=== PATIENT | male | born 1950 | race Caucasian/White ===

== ENCOUNTER 2017-03-09 13:52 | Emergency (ER) | payer MEDICAID, OTHER ==
[2017-03-09 14:08] VITALS: RESP 16; TEMP 98.2; O2SAT 91
--- NOTE | 2017-03-09 14:41 | EDPHY ---
H & P Stated Complaint: seizure? Time Seen by Provider: 03/09/17 14:40 - Personal History Current Tetanus/Diphtheria Vaccine: Unsure Current Tetanus Diphtheria and Acellular Pertussis (TDAP): Unsure - Medical/Surgical History Hx Asthma: No Hx Chronic Respiratory Disease: No Hx Diabetes: No Hx Cardiac Disease: No Hx Renal Disease: No Hx Cirrhosis: No Hx Alcoholism: Yes Hx HIV/AIDS: No Hx Splenectomy or Spleen Trauma: No Other PMH: PMH: HTN, L EAR SKIN GRAFT AND SKIN CA REVISION, ETOH ABUSE, cebrebral hemmoRAGE, brain surgery11/08/15. PSH: brain surgery11/08/15 - Social History Smoking Status: Former smoker Constitutional: Initial Vital Signs Temperature (C) 36.8 C 03/09/17 13:52 Heart Rate 116 H 03/09/17 13:52 Respiratory Rate 16 03/09/17 13:52 Blood Pressure 141/93 H 03/09/17 13:52 O2 Sat (%) 91 L 03/09/17 13:52 O2 Delivery Mode Room Air Allergies/Adverse Reactions: No Known Allergies Allergy (Unverified 11/08/15 17:22) Home Medications: Medication Instructions Recorded Acyclovir [Zovirax 400 mg (*)] 800 mg PO BID #60 tab 12/10/15 Lisinopril 03/09/17 Medical Decision Making - Diagnostics Imaging Results: Imaging Impressions Head CT 03/09/17 14:53 Impression: 1. No acute intracranial findings. 2. Probable dural thickening versus less likely sequela of chronic subdural hematoma deep to the right craniotomy flap. Findings discussed with Porfirio Rm M.D., on March 09 2017 at 1531. ED Course/Re-evaluation: CHIEF COMPLAINT: HISTORY OF PRESENT ILLNESS: This patient is a 66 year old male arriving with his following a suspected seizure shortly prior to arrival. 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 He had extensive care for this including two brain surgeries. His reports he had a seizure while hospitalized. He stopped drinking for about four months, but is now drinking again. This morning, he and his were preparing for a camping trip, and his found him lying in his chair with blood coming from his mouth. The patient does not remember the incident. He is not currently taking any antiseizure medication. He did consume "a lot" of alcohol yesterday, and his states his usual amount is about 12 beers. No fever, chest pain, shortness of breath, vomiting, or other associated symptoms. REVIEW OF SYSTEMS: A 10 point review of systems was performed and is negative with the exception of the elements mentioned in the history of present illness. PHYSICAL EXAM: HR, BP, O2 Sat, RR. Temp noted General Appearance: Alert, well hydrated, appropriate, and non-toxic appearing. Head: Atraumatic without scalp tenderness or obvious injury Eyes: Pupils equal, round, reactive to light and accommodation, EOMI, no trauma , no injection. Ears: Clear bilaterally, no perforation, normal landmarks Nose: Atraumatic, no rhinorrhea, clear. Throat: Left lateral and small right lateral tongue bites. There is no erythema or exudates, mucus membranes moist. Neck: Supple, 2+ carotid upstroke, nontender, no lymphadenopathy. Respiratory: No retractions, no distress, no wheezes, and no accessory muscle use. Lungs are clear to auscultation bilaterally. Cardiovascular: Regular rate and rhythm, no murmurs, rubs, or gallops. Good capillary refill all extremities. Gastrointestinal: Abdomen is soft, nontender, non-distended. Musculoskeletal: Normal active ROM of all extremities, atraumatic. Neurological: Alert, appropriate, and interactive. The patient has normal DTRs and non-focal cranial nerves, motor, sensory, and cerebellar exam. Skin: No rashes, good turgor, no nodules on palpation. Past medical history: Hypertension, cerebral hemorrhage, alcohol abuse. Past surgical history: Brain surgery 11/08/15, L ear skin graft, skin CA revision Family history: Noncontributory Social history: Current alcohol abuse. , lives in [place]. at bedside. DIAGNOSTICS/PROCEDURES/CRITICAL CARE TIME: Study: CT of the brain without contrast Indication: seizure prior traumatic brain injury and chronic alcoholic Results: CT scan of the brain] was obtained. The results of the study are no acute process. The study was read by the radiologist, Dr. David Coleman. I viewed the images myself on the PACS system. DIFFERENTIAL DIAGNOSIS: The differential diagnosis for the patient's seizure included but was not limited to electrolyte abnormality, alcohol withdrawal, medication noncompliance , head injury, MEDIA CLERK structural abnormality, and break through seizure. MEDICAL DECISION MAKING: This patient is 66 year old male. Physical exam reveals left lateral and small right lateral tongue bites. High suspicion for seizure, due to alcohol withdrawal or to prior brain injury. Plan to order noncontrast head CT, labs including CBC, BMP. Plan to administer 1mg IV Ativan to prevent recurrent seizure. 15:[address] Coleman, radiologist. Head CT negative for acute processes. 4:00 p.m.: This patient is feeling normal. His is willing to take him back home. His head CT is unremarkable. Laboratory studies are unremarkable. He most likely had an alcohol withdrawal seizure as he is a significant and chronic alcoholic. I have offered him rehab and he is not interested. - Data Points Laboratory Results: Laboratory Results 03/09/17 15:00 03/09/17 03/09/17 03/09/17 15:41 15:38 15:00 WBC RBC Hgb POC Hgb 16.7 gm/dL gm/dL (13.7-17.5) Hct POC Hct 49 % % (40-51) MCV MCH MCHC RDW Plt Count MPV Neut % (Auto) Lymph % (Auto) [place] % (Auto) Eos % (Auto) Baso % (Auto) Nucleat RBC Rel Count Absolute Neuts (auto) Absolute Lymphs (auto) Absolute Monos (auto) Absolute Eos (auto) Absolute Basos (auto) Absolute Nucleated RBC Immature Gran % Immature Gran # POC Sodium 143 mEq/L mEq/L (134-144) Sodium Pending REJ POC Potassium 4.2 mEq/L mEq/L (3.3-5.0) Potassium Pending Not Reported POC Chloride 107 mEq/L mEq/L (97-110) Chloride Pending Not Reported Carbon Dioxide Pending Not Reported Anion Gap Pending Not Reported POC BUN 11 mg/dL mg/dL (7-23) BUN Pending Not Reported Creatinine Pending Not Reported POC Creatinine 0.9 mg/dL mg/dL (0.7-1.3) Estimated GFR Pending Not Reported Glucose Pending Not Reported POC Glucose 143 mg/dL H mg/dL (70-100) Calcium Pending Not Reported 03/09/17 15:00 WBC 6.17 10^3/uL 10^3/uL (3.80-9.50) RBC 4.78 10^6/uL 10^6/uL (4.40-6.38) Hgb 16.1 g/dL g/dL (13.7-17.5) POC Hgb Hct 47.0 % % (40.0-51.0) POC Hct MCV 98.3 fL fL (81.5-99.8) MCH 33.7 pg pg (27.9-34.1) MCHC 34.3 g/dL g/dL (32.4-36.7) RDW 14.7 % % (11.5-15.2) Plt Count 202 10^3/uL 10^3/uL (150-400) MPV 10.3 fL fL (8.7-11.7) Neut % (Auto) 84.6 % H % (39.3-74.2) Lymph % (Auto) 8.8 % L % (15.0-45.0) [place] % (Auto) 5.5 % % (4.5-13.0) Eos % (Auto) 0.0 % L % (0.6-7.6) Baso % (Auto) 0.8 % % (0.3-1.7) Nucleat RBC Rel Count 0.0 % % (0.0-0.2) Absolute Neuts (auto) 5.22 10^3/uL 10^3/uL (1.70-6.50) Absolute Lymphs (auto) 0.54 10^3/uL L 10^3/uL (1.00-3.00) Absolute Monos (auto) 0.34 10^3/uL 10^3/uL (0.30-0.80) Absolute Eos (auto) 0.00 10^3/uL L 10^3/uL (0.03-0.40) Absolute Basos (auto) 0.05 10^3/uL 10^3/uL (0.02-0.10) Absolute Nucleated RBC 0.00 10^3/uL 10^3/uL (0-0.01) Immature Gran % 0.3 % % (0.0-1.1) Immature Gran # 0.02 10^3/uL 10^3/uL (0.00-0.10) POC Sodium Sodium POC Potassium Potassium POC Chloride Chloride Carbon Dioxide Anion Gap POC BUN BUN Creatinine POC Creatinine Estimated GFR Glucose POC Glucose Calcium Medications Given: Discontinued Medications Lorazepam (Ativan Injection) 1 mg IVP EDNOW ONE Stop: 03/09/17 14:54 Last Admin: 03/09/17 15:04 Dose: 1 mg Point of Care Test Results: 03/09/17 15:38 POC Sodium 143 POC Potassium 4.2 POC Chloride 107 POC BUN 11 POC Creatinine 0.9 POC Glucose 143 H Departure - Departure Disposition: Home, Routine, Self-Care Clinical Impression: Seizure disorder Condition: Good Instructions: Alcohol Withdrawal (ED), Recurrent Seizures in Adults (ED) Additional Instructions: No driving, operating equipment, climbing on ladders, or doing anything dangerous for the next 3 months or until your cleared by your primary doctor or neurologist. Referrals: Alfredito Duff MD [Medical Doctor] - As per Instructions Report Scribed for: Porfirio Rm Report Scribed by: Abbey Silver Date of Report: 03/09/17 Time of Report: 14:42
[2017-03-09] MEDS ORDERED: LORazepam 2 MG/ML INJ ONE (14:53)
[2017-03-09] MEDS ORDERED: LORazepam 2 MG/ML INJ IVP ONE (14:53)
[2017-03-09 15:07] LABS: % IMMATURE GRANULYOCYTES 0.3 % (0.0-1.1); ABSOLUTE IMMATURE GRANULOCYTES 0.02 10^3/uL (0.00-0.10); ADD DIFF? NO; ADD MORPH? NO; ADD SCAN? NO; ATYPICAL LYMPHOCYTE FLAG 0 (0-99); FRAGMENT RBC FLAG 0 (0-99); HEMOGLOBIN 16.1 g/dL (13.7-17.5); LEFT SHIFT FLG 0 (0-99); LIPEMIA HEMOLYSIS FLAG 90 (0-99); MEAN CELL HEMOGLOBIN 33.7 pg (27.9-34.1); MEAN CELL HEMOGLOBIN CONCENTR. 34.3 g/dL (32.4-36.7); MEAN CELL VOLUME 98.3 fL (81.5-99.8); MEAN PLATELET VOLUME 10.3 fL (8.7-11.7); PLATELET CLUMPS FLAG 10 (0-99); PLATELET COUNT 202 10^3/uL (150-400); RED BLOOD CELL COUNT 4.78 10^6/uL (4.40-6.38); RED CELL DISTRIBUTION WIDTH 14.7 % (11.5-15.2)
[2017-03-09 16:19] LABS: ANION GAP 11 mEq/L (8-16); CALCIUM 9.4 mg/dL (8.5-10.4); CARBON DIOXIDE 22 mEq/l (22-31); CHLORIDE 110 mEq/L (97-110); CREATININE 0.9 mg/dL (0.7-1.3); GLOMERULAR FILTRATION RATE > 60; GLUCOSE 139 mg/dL (70-100); SODIUM 143 mEq/L (134-144)
[2017-03-09 16:20] LABS: POTASSIUM 4.3 mEq/L (3.3-5.0)
[2017-03-09 16:22] VITALS: BP 146/101; PULSE 100
== END 2017-03-09 16:21 | disposition home or self-care (01) ==
LOC: EDUNIT#
DX: G40.909 Epilepsy, unspecified, not intractable, without status epilepticus (principal); I10 Essential (primary) hypertension; Z85.828 Personal history of other malignant neoplasm of skin; Z87.891 Personal history of nicotine dependence
CPT/HCPCS: 70450; 96374; 99285; J2060; 82947-QW

== ENCOUNTER 2017-10-23 21:24 | Inpatient (IN) | payer OTHER ==
--- NOTE | 2017-10-23 21:38 | EDPHY ---
H & P Stated Complaint: fall Time Seen by Provider: 10/23/17 21:35 HPI/ROS: HPI The patient presents with a fall which occurred prior to arrival. He lives at home with his . His had traveled out of town. She spoke with him at about 5:00 p.m. And he was slurring his words. She was worried that he was intoxicated. She got home at about 8:45 p.m. And found him at the base of a full flight of stairs somewhat unconscious. He had a hematoma which was bleeding on his head. He had urinated on himself. She was able to arouse him, however he seemed drunk to her. She called 911.. REVIEW OF SYSTEMS Constitutional: No fever, no chills. Eyes: No discharge. ENT: No sore throat. Cardiovascular: No chest pain, no palpitations. Respiratory: No cough, no shortness of breath. Gastrointestinal: No abdominal pain, no vomiting. Genitourinary: No hematuria. Musculoskeletal: No back pain. Skin: No rashes. Neurological: No headache. PMHx: Subdural hematoma, history of traumatic brain injury 2 years ago, does have resultant seizures. Soc Hx: Lives at home, drinks alcohol when he can get his hands on it PHYSICAL General Appearance: Alert, seeming intoxicated. Head: There is a 3 cm hematoma to his posterior occiput which is actively bleeding Eyes: Pupils equal and round no pallor or injection, right-sided periorbital ecchymoses ENT, Mouth: Mucous membranes moist Respiratory: There are no retractions, lungs are clear to auscultation Cardiovascular: Regular rate and rhythm Gastrointestinal: Abdomen is soft and non-tender, no masses, bowel sounds normal Neurological: A&O x3, moves all extremities Skin: Warm and dry, no rashes Musculoskeletal: C-collar is in place Extremities: symmetrical, full range of motion Psychiatric: Patient is oriented X 3, there is no agitation Source: Patient, Family, EMS Exam Limitations: Intoxication - Medical/Surgical History Hx Asthma: No Hx Chronic Respiratory Disease: No Hx Diabetes: No Hx Cardiac Disease: No Hx Renal Disease: No Hx Cirrhosis: No Hx Alcoholism: Yes Hx HIV/AIDS: No Hx Splenectomy or Spleen Trauma: No Other PMH: PMH: HTN, L EAR SKIN GRAFT AND SKIN CA REVISION, ETOH ABUSE, cebrebral hemmoRAGE, brain surgery11/08/15. PSH: brain surgery11/08/15 - Social History Smoking Status: Former smoker Constitutional: Initial Vital Signs Temperature (C) 36.9 C 10/23/17 21:33 Heart Rate 95 10/23/17 21:33 Respiratory Rate 18 10/23/17 21:33 Blood Pressure 132/90 H 10/23/17 21:33 O2 Sat (%) 94 10/23/17 21:33 O2 Delivery Mode Room Air Allergies/Adverse Reactions: No Known Allergies Allergy (Unverified 11/08/15 17:22) Home Medications: Medication Instructions Recorded Acyclovir [Zovirax 400 mg (*)] 800 mg PO BID #60 tab 12/10/15 Lisinopril 03/09/17 Medical Decision Making - Diagnostics Imaging Results: Imaging Impressions Head CT 10/23/17 21:33 Impression: 1. Cervical spine negative for fracture. 2. Multilevel spondylosis is noted. Results called and discussed with Silvina Bo MD on 10/23/2017 at 22:[address] 10/23/17 21:34 Impression: 1. Cervical spine negative for fracture. 2. Multilevel spondylosis is noted. Results called and discussed with Silvina Bo MD on 10/23/2017 at 22:[address] 10/23/17 21:34 Impression: 1. Facial bones are negative for fracture. 2. See above report for additional findings. Results called and discussed with Silvina Bo MD on 10/23/2017 at 22:33 CT brain demonstrates right-sided subdural and subarachnoid blood, discussed with radiologist. Imaging: Discussed imaging studies w/ sales process manager Radiologist Procedures: LACERATION REPAIR Procedure: Laceration repair. Verbal consent was obtained from the patient. The linear 1 cm and 1 cm laceration on the scalp:. The wound was scrubbed, draped and explored to its base with a gloved finger. There were no deep structures involved. . The wound was repaired with 2 christofer and 1 staple. The wound repair was simple. The procedure was performed by myself. Differential Diagnosis: 67-year-old man with history of alcohol abuse, subdural hemorrhage, traumatic brain injury with seizures presents after fall down 1 flight of stairs. It is unclear how he fell or he has suffered from a seizure. He does seem quite intoxicated now without any focal neurologic deficit. He does have a hematoma of his scalp. Differential diagnosis includes intracranial hemorrhage, subdural hemorrhage, seizure, alcohol intoxication, electrolyte disturbance. 9:35 p.m.- Initial patient encounter. I met the paramedics at the bedside to obtain their report. I spoke with the patient's at the bedside. 10:30 p.m.- I spoke with Dr. Anderson. Patient's CT scan shows subdural hemorrhage of the right frontal region as well as subarachnoid blood. 10:50 p.m.- I spoke with Dr. Marshall of Neurosurgery who recommends admission to Step-Down Unit with trauma team admitting and they will consult in the morning. 11:00 p.m.- I have ordered Keppra for the patient. I have discussed the case with Dr. Nolasco on-call for trauma surgery. He will come to see the patient to admit him to the Step-Down Unit. I have discussed the result with the patient and his at the bedside. Critical Care Time: CRITICAL CARE Critical care time spent by me, Dr. Bo, exclusively with this patient was 30 minutes, exclusive of PA time and exclusive of procedures. The organ system at risk was neuro and I gave antiepileptics, consulted with the trauma surgeon in the neurosurgeon and admitted the patient to the hospital to prevent worsening of the patients condition. - Data Points Laboratory Results: Laboratory Results 10/23/17 21:50 10/23/17 21:50 10/23/17 10/23/17 21:50 21:50 WBC 6.67 10^3/uL 10^3/uL (3.80-9.50) RBC 5.00 10^6/uL 10^6/uL (4.40-6.38) Hgb 15.8 g/dL g/dL (13.7-17.5) Hct 47.1 % % (40.0-51.0) MCV 94.2 fL fL (81.5-99.8) MCH 31.6 pg pg (27.9-34.1) MCHC 33.5 g/dL g/dL (32.4-36.7) RDW 14.4 % % (11.5-15.2) Plt Count 237 10^3/uL 10^3/uL (150-400) MPV 10.1 fL fL (8.7-11.7) Neut % (Auto) 55.6 % % (39.3-74.2) Lymph % (Auto) 35.5 % % (15.0-45.0) [place] % (Auto) 7.9 % % (4.5-13.0) Eos % (Auto) 0.6 % % (0.6-7.6) Baso % (Auto) 0.3 % % (0.3-1.7) Nucleat RBC Rel Count 0.0 % % (0.0-0.2) Absolute Neuts (auto) 3.70 10^3/uL 10^3/uL (1.70-6.50) Absolute Lymphs (auto) 2.37 10^3/uL 10^3/uL (1.00-3.00) Absolute Monos (auto) 0.53 10^3/uL 10^3/uL (0.30-0.80) Absolute Eos (auto) 0.04 10^3/uL 10^3/uL (0.03-0.40) Absolute Basos (auto) 0.02 10^3/uL 10^3/uL (0.02-0.10) Absolute Nucleated RBC 0.00 10^3/uL 10^3/uL (0-0.01) Immature Gran % 0.1 % % (0.0-1.1) Immature Gran # 0.01 10^3/uL 10^3/uL (0.00-0.10) Sodium 145 mEq/L mEq/L (135-145) Potassium 4.5 mEq/L mEq/L (3.5-5.2) Chloride 105 mEq/L mEq/L (97-110) Carbon Dioxide 25 mEq/l mEq/l (22-31) Anion Gap 15 mEq/L mEq/L (8-16) BUN 6 mg/dL L mg/dL (7-23) Creatinine 0.8 mg/dL mg/dL (0.7-1.3) Estimated GFR > 60 Glucose 90 mg/dL mg/dL (70-100) Calcium 8.7 mg/dL mg/dL (8.5-10.4) Total Bilirubin 0.2 mg/dL mg/dL (0.1-1.4) AST 21 IU/L IU/L (17-59) ALT 32 IU/L IU/L (21-72) Alkaline Phosphatase 57 IU/L IU/L (38-126) Total Protein 7.1 g/dL g/dL (6.3-8.2) Albumin 4.1 g/dL g/dL (3.5-5.0) Ethyl Alcohol 365 mg/dL H mg/dL (0-10) Medications Given: Famotidine/Sodium Chloride (Pepcid 20 Mg (Premix)) 50 mls @ 200 mls/hr IV DAILY HERI Stop: 04/21/18 23:29 Last Admin: 10/24/17 00:00 Dose: 50 mls Discontinued Medications Levetiracetam (Keppra (Premix)) 100 mls @ 400 mls/hr IV EDNOW ONE Stop: 10/23/17 23:12 Last Admin: 10/23/17 23:31 Dose: 100 mls Midazolam HCl (Versed) 1 mg IVP EDNOW ONE Stop: 10/23/17 23:07 Last Admin: 10/23/17 23:32 Dose: 1 mg Departure - Departure Disposition: [facility] Inpatient Acute Clinical Impression: Subdural hematoma, acute, Fall at home, Subarachnoid bleed, Alcohol intoxication Condition: Fair
[2017-10-23 22:01] LABS: PLATELET COUNT 237 10^3/uL (150-400)
[2017-10-23] MEDS ORDERED: levETIRAcetam 1000MG/NACL 100 ML IV ONE (22:58)
[2017-10-23] MEDS ORDERED: MIDAZOLAM 2 MG/2 ML VIAL IVP ONE (23:06)
[2017-10-23] MEDS ORDERED: ONDANSETRON DISINTEGRATING 4 MG TAB PO PRN (23:24)
[2017-10-23] MEDS ORDERED: ONDANSETRON 4 MG/2 ML VIAL IVP PRN (23:24)
[2017-10-23] MEDS ORDERED: DIAZEPAM 5 MG TAB PO PRN (23:24)
--- NOTE | 2017-10-23 23:24 | PDGENHP ---
History and Physical - Chief Complaint head injury - History of Present Illness 67 y/o male brought in to the ED by EMS after his came home and found him at the bottom of the stairs unconscious. He arrived by ambulance as a non- trauma activation. He was assessed by Dr. Bo and CTof the head and cervical spine were performed. He was found to have a right frontal SDH with associated SAH. Neurosurgery was consulted and Dr. Alamo reviewed the patient' s images. Trauma Service consultation was requested. At the time of my interview the patient was somewhat agitated, inebriated and beligerant. History Information - Allergies/Home Medication List Allergies/Adverse Reactions: No Known Allergies Allergy (Unverified 11/08/15 17:22) Home Medications: Lisinopril 03/09/17 [Last Taken Unknown] I have personally reviewed and updated: family history, medical history, social history, surgical history - Past Medical History seizures - Surgical History Additional surgical history: right parietal craniotomy 11/08/15 Dr. 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 Review of Systems Review of Systems: Constitutional: Reports: recent injury EENMT: Reports: no symptoms Cardiac: Reports: no symptoms Respiratory: Reports: no symptoms Gastrointestinal: Reports: no symptoms Genitourinary: Reports: no symptoms Muscolosketal: Reports: no symptoms Neurological: Reports: other (history of prior seizures/multiple head injuries) Hematologic/Lymphatic: Reports: no symptoms Physical Exam Physical Exam: Temp Pulse Resp BP Pulse Ox 36.6 C 100 16 103/68 97 10/23/17 22:00 10/23/17 22:00 10/23/17 22:00 10/23/17 22:00 10/23/17 22:00 Constitutional: not in pain Eyes: PERRL (2mm pupils), anicteric sclera, EOMI, other (right periorbital ecchymosis) Ears, Nose, Mouth, Throat: moist mucous membranes, hearing normal, other (large scalp hematoma with 1 cm lac parietal, minimal bleeding/neck non-tender) Cardiovascular: regular rate and rhythym, tachycardia Peripheral Pulses: 4+: carotid (R), carotid (L), dorsalis-pedis (R), dorsalis- pedis (L) Respiratory: no respiratory distress, clear to auscultation Gastrointestinal: normoactive bowel sounds, soft, non-tender abdomen, no palpable masses, tenderness Genitourinary: no bladder tenderness Skin: warm, normal color Musculoskeletal: full muscle strength Neurologic: other (GCS 15 oriented to person, place, time (dates off by 2 weeks ) Reports CERTIFIED LOW VISION THERAPIST to be [facility]) Lab Data & Imaging Review 10/23/17 21:50 10/23/17 21:50 WBC 6.67 10^3/uL (3.80-9.50) 10/23/17 21:50 RBC 5.00 10^6/uL (4.40-6.38) 10/23/17 21:50 Hgb 15.8 g/dL (13.7-17.5) 10/23/17 21:50 Hct 47.1 % (40.0-51.0) 10/23/17 21:50 MCV 94.2 fL (81.5-99.8) 10/23/17 21:50 MCH 31.6 pg (27.9-34.1) 10/23/17 21:50 MCHC 33.5 g/dL (32.4-36.7) 10/23/17 21:50 RDW 14.4 % (11.5-15.2) 10/23/17 21:50 Plt Count 237 10^3/uL (150-400) 10/23/17 21:50 MPV 10.1 fL (8.7-11.7) 10/23/17 21:50 Neut % (Auto) 55.6 % (39.3-74.2) 10/23/17 21:50 Lymph % (Auto) 35.5 % (15.0-45.0) 10/23/17 21:50 [place] % (Auto) 7.9 % (4.5-13.0) 10/23/17 21:50 Eos % (Auto) 0.6 % (0.6-7.6) 10/23/17 21:50 Baso % (Auto) 0.3 % (0.3-1.7) 10/23/17 21:50 Nucleat RBC Rel Count 0.0 % (0.0-0.2) 10/23/17 21:50 Absolute Neuts (auto) 3.70 10^3/uL (1.70-6.50) 10/23/17 21:50 Absolute Lymphs (auto) 2.37 10^3/uL (1.00-3.00) 10/23/17 21:50 Absolute Monos (auto) 0.53 10^3/uL (0.30-0.80) 10/23/17 21:50 Absolute Eos (auto) 0.04 10^3/uL (0.03-0.40) 10/23/17 21:50 Absolute Basos (auto) 0.02 10^3/uL (0.02-0.10) 10/23/17 21:50 Absolute Nucleated RBC 0.00 10^3/uL (0-0.01) 10/23/17 21:50 Immature Gran % 0.1 % (0.0-1.1) 10/23/17 21:50 Immature Gran # 0.01 10^3/uL (0.00-0.10) 10/23/17 21:50 Sodium 145 mEq/L (135-145) 10/23/17 21:50 Potassium 4.5 mEq/L (3.5-5.2) 10/23/17 21:50 Chloride 105 mEq/L (97-110) 10/23/17 21:50 Carbon Dioxide 25 mEq/l (22-31) 10/23/17 21:50 Anion Gap 15 mEq/L (8-16) 10/23/17 21:50 BUN 6 mg/dL (7-23) L 10/23/17 21:50 Creatinine 0.8 mg/dL (0.7-1.3) 10/23/17 21:50 Estimated GFR > 60 10/23/17 21:50 Glucose 90 mg/dL (70-100) 10/23/17 21:50 Calcium 8.7 mg/dL (8.5-10.4) 10/23/17 21:50 Total Bilirubin 0.2 mg/dL (0.1-1.4) 10/23/17 21:50 AST 21 IU/L (17-59) 10/23/17 21:50 ALT 32 IU/L (21-72) 10/23/17 21:50 Alkaline Phosphatase 57 IU/L (38-126) 10/23/17 21:50 Total Protein 7.1 g/dL (6.3-8.2) 10/23/17 21:50 Albumin 4.1 g/dL (3.5-5.0) 10/23/17 21:50 Ethyl Alcohol 365 mg/dL (0-10) H 10/23/17 21:50 Interpretation: right frontal SDH/SAH, prior right parietal craniotomy. no shift or effacement. encephalomalacia present. cervical spine without fractures Assessment & Plan Assessment: s/p unwitnessed fall with LOC right frontal subdural hematoma/subarachnoid hemorrhage EtOH intoxication (365) s/p right parietal craniotomy for SDH 2016 hx seizures Plan: Admit to SDU for neuro-observation/repeat CT as indicated clinically Tertiary survey in AM CXR JEROME
[2017-10-23] MEDS ORDERED: NS 500 ML IV PRN (23:30)
[2017-10-24 04:12] LABS: PLATELET COUNT 249 10^3/uL (150-400)
[2017-10-24 08:37] LABS: PLATELET COUNT 224 10^3/uL (150-400)
[2017-10-24] MEDS ORDERED: THIAMINE HCL 500 MG in NS 500 ML IV SCH (09:00)
[2017-10-24] MEDS ORDERED: levETIRAcetam 500MG/NACL 100 ML IV SCH (09:00)
--- NOTE | 2017-10-24 09:16 | GCON ---
[f rep st] CONSULTATION HPI: Patient is a 67-year-old male who was brought to the ED last night by EMS after his found him unconscious at the bottom of the stairs. Patient does not remember the incident. CT of the head was performed that showed a scalp hematoma, right frontoparietal acute subdural hematoma with mild effacement of adjacent sulci, as well as small amount of frontoparietal subarachnoid and minimal petechial hemorrhage in the same area. There was no mass effect or midline shift. The patient does not remember the incident and was GCS 15. He was placed in ICU for observation overnight. Upon seeing him this morning, he does not remember the incident and does not remember falling down the stairs. States he does wear socks sometimes in the house, has carpeted stairs and has fallen down them before. He denies any headaches, any nausea, vomiting, any left-side weakness, nor difficulties with balance. His alcohol was 365 at admission and patient states he is a daily drinker of 3-4 beers a day. PAST MEDICAL HISTORY: Includes depression, hypertension. Has a documented history of seizures. SURGICAL HISTORY: Includes a right parietal craniotomy on 11/08/2015, by Dr. Agudelo, as well as recent Mohs procedure. SOCIAL HISTORY: Patient states he drinks 3-4 beers a day. He does not use any illicit drugs. He no longer uses tobacco. 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 He lives at home alone with his . ALLERGIES: He has no known drug allergies. REVIEW OF SYSTEMS: Negative for respiratory symptoms, chest pain. He has had a recent cold. No GI symptoms. Negative for weakness, negative for gait disturbance. Negative for headaches, nausea, vomiting, PHYSICAL EXAM: Patient is alert and oriented to person, place, and relative time. His speech is clear and fluent. He is hard of hearing. He is in no apparent distress. His extraocular movements are intact. He does have an occipitoparietal left-sided scalp laceration, as well as a large hematoma across his right eye. His extraocular movements are intact. His pupils are equal and reactive to light. His cranial nerves 2-12 are grossly intact. Tongue protrusion is midline. Facial movements are symmetric. Palate rise is symmetric. There is no facial droop. He moves all extremities x4. He has no pronator drift. He does have a mild resting tremor. He has full strength in his bilateral upper and lower extremities. His sensation is intact to light touch. Patient has a nonfocal neurological exam. ASSESSMENT AND PLAN: This is a 67-year-old gentleman with an intoxicated fall down the stairs with positive loss of consciousness, resulting in a right frontoparietal subdural hematoma and very small frontoparietal subarachnoid hemorrhage that did not cause any mass effect or midline shift. Patient has been GCS 15 since admission and has no deficits on neurological exam. Neurosurgery recommends to continue to watch the patient today, and if he remains stable he may be discharged from our standpoint, with followup outpatient as needed. Plan has been discussed with Dr. Robertson. He will see the patient later this morning before he discharges. Thank you for this consultation. Please contact us with any additional questions. /[id number]/MODL MTDD
--- NOTE | 2017-10-24 09:20 | ASMTCMCOM ---
CM Note CM Note Notes: 67 yr old male admitted after a ETOH/fall down the stairs and SDH, SAH. He has a hx of R parietal crani in '16 and SZ. Patient is . Therapies to eval for discharge needs. CM to follow. Date Signed: 10/24/2017 09:20 AM Electronically Signed By:Sisi Corrales LCSW
[2017-10-24] MEDS: chlordiazePOXIDE 25 MG CAP PO SCH ×2 (09:54→10:06)
[2017-10-24] MEDS: MULTIVITAMINS 1 EACH TAB PO SCH (09:54)
[2017-10-24] MEDS: FOLIC ACID 1 MG TAB PO SCH (09:54)
[2017-10-24] MEDS: FAMOTIDINE 20 MG/NACL 50 ML IV SCH ×2 (09:56)
[2017-10-24] MEDS ORDERED: LISINOPRIL/HCTZ 20/12.5MG 1 EA TAB PO PRN ×2 (10:46→10:49)
[2017-10-24] MEDS ORDERED: buPROPion SR 150 MG TAB PO PRN (10:46)
[2017-10-24] MEDS ORDERED: chlordiazePOXIDE 25 MG CAP PO PRN (10:47)
--- NOTE | 2017-10-24 11:28 | TRAUMAPN ---
Assessment/Plan: 67 yo with history of traumatic brain injury, alcohol abuse and fall now with Frontal SDH - repeat scan in 3-4 weeks Eye Ecchymosis - no vision issues Acute alcohol intoxication GINGER 365 - CIWA History of hypertension, seizures, - home medications. Has previously refused Since over age of 66 and co-morbidities, will consult hospitalist S: Feeling well. Left buttock is sore O: Tertiary survey performed Objective: Vital Signs Temp Pulse Resp BP Pulse Ox 36.8 C 100 21 H 121/83 H 90 L 10/24/17 08:00 10/24/17 08:00 10/24/17 08:00 10/24/17 08:00 10/24/17 08:00 Laboratory Results 10/24/17 08:30 10/24/17 04:00 10/23/17 10/24/17 10/25/17 05:59 05:59 05:59 Intake Total 110 Output Total 250 Balance -140 Physical Exam - Physical Exam General Appearance: WD/WN, alert, no apparent distress, other (Kayla on scalp. Incision without evidence of infection) EENT: other (R eye ecchymosis) Neck: non-tender, full range of motion, supple Respiratory: chest non-tender, lungs clear, normal breath sounds Cardiac/Chest: regular rate, rhythm, No edema Abdomen: normal bowel sounds, non-tender, soft Back: Normal inspection Skin: normal color, warm/dry, other (small hematoma L buttock and small abrasion R buttock) Extremities: normal range of motion, non-tender Neuro/Psych: no motor/sensory deficits, alert, abnormal director of employee development II-XII, other ( oriented to person place but not date. Poor insight)
[2017-10-24] MEDS: ACETAMINOPHEN 325 MG TAB PO PRN ×2 (13:47→20:12)
--- NOTE | 2017-10-24 15:23 | GCON ---
[f rep st] CONSULTATION DATE OF CONSULTATION: 10/24/2017 REASON FOR CONSULTATION: I was asked by Dr. Patricia to see the patient in regard to his medical proble ms, including hypertension. HISTORY OF PRESENT ILLNESS: This is a 67-year-old man who was admitted after a fall down his stairs at home while intoxicated, having been found to have a right frontal subdural hematoma, as well as elizabeth barachnoid hemorrhage. He does not really remember the incident himself. He was found to be intoxic ated on arrival to the Emergency Department with an alcohol level of 365. His history is difficult. He is quite tangential. However, he initially told me that he may drink up to 10 beers a day, and pako schuster later corrected that and said that he has not drink very much since his subdural hematoma evacuat ion in October of 2015. Regardless, he has been placed appropriately on CIWA and has been receiving Li brium. He additionally has hypertension. He tells me that this is well controlled on lisinopril. PAST MEDICAL HISTORY: 1. Hypertension. 2. Squamous cell carcinoma of the skin. 3. Subdural hematoma, status post evacuation with residual brain injury in October of 2015. 4. Alcohol use. 5. Hernia repair. 6. Questionable seizure disorder: He had been on Keppra after his previous hemorrhage. However, he was not continued on this. 7. History of gout. MEDICATIONS: Please see medication reconciliation. ALLERGIES: No known drug allergies. SOCIAL HISTORY: He is originally from the [place] area. He worked at [employer]. He has 2 da ughters. He is also . He drinks as above. FAMILY HISTORY: Reviewed and noncontributory. REVIEW OF SYSTEMS: A 10-point review of systems is conducted and is negative except per HPI. PHYSICAL EXAM: VITAL SIGNS: Blood pressure is 136/82, heart rate 105 respiration rate 19, saturatin g 95% on room air, temperature is 37. GENERAL: The patient is a pleasant man who is resting comfort ably, in no acute distress. HEENT: Shows him to have a right-sided scleral hemorrhage. CARDIOVASCU LAR: Shows him to be borderline tachycardic. There are no murmurs, rubs, or gallops. PULMONARY: S hows him to be in no respiratory distress. He is breathing comfortably. His lungs are clear to ausc ultation bilaterally. ABDOMEN: Soft, nontender, nondistended. SKIN: Shows no rash. : Shows no Murillo catheter in place. NEUROLOGIC: Shows him to be alert and oriented x3. He is quite tangentia l in his speech. LABORATORY DATA: 1. CBC is unremarkable. Bicarb is 21. Alcohol level is 365. 2. I reviewed his chart. 3. I reviewed his imaging including chest x-ray, which shows clear lung anderson bilaterally. I perso divine viewed and interpreted this. 4. Face CT shows no facial bone fractures. 5. Cervical spine CT shows no fractures with multilevel spondylosis. 6. Head CT shows right frontal parietal small subdural hematoma. IMPRESSION AND PLAN: 1. Subdural hematoma: Nonoperative per Neurosurgery. Would like to observe [address] scan in 3-4 weeks. 2. Alcohol abuse: He is mildly tachycardic, which may indicate some withdrawal, however is not paula rly tremulous. I think scheduled p.r.n. p.o. Librium for now is appropriate. He does not appear to have received any given low CIWA. He is currently on thiamine. Certainly, he has a potential for se tanya withdrawal. 3. Encephalopathy: Somewhat chronic per discussion with RN. He has gotten a cog evaluation. This is pending at this time. 4. Hypertension: Currently not an issue. He is on hydrochlorothiazide and lisinopril. 5. Depression: He is on Wellbutrin. 6. Disposition: Appreciate case management assistance in finding a safe disposition for him. Thank you for involving Hospital Medicine in the care of this patient. We will continue to follow [facility]. /[id number]/MODL
[2017-10-24] MEDS: buPROPion SR 150 MG TAB PO SCH (20:12)
[2017-10-24] MEDS ORDERED: MELATONIN 3 MG TAB PO SCH (21:00)
[2017-10-25] MEDS: ACETAMINOPHEN 325 MG TAB PO PRN ×2 (03:07→08:28)
[2017-10-25 07:54] VITALS: PULSE 86; RESP 14; TEMP 97.9; O2SAT 95
[2017-10-25 08:29] VITALS: BP 120/78
[2017-10-25] MEDS: FOLIC ACID 1 MG TAB PO SCH (08:29)
[2017-10-25] MEDS: MULTIVITAMINS 1 EACH TAB PO SCH (08:29)
[2017-10-25] MEDS: buPROPion SR 150 MG TAB PO SCH (08:29)
--- NOTE | 2017-10-25 08:48 | SOAPPROG ---
SOAP Progress Note Assessment/Plan: Assessment: 67-YEAR-OLD MALE WHO FELL DOWN THE STAIRS SUSTAINING A VERY SMALL SUBDURAL HEMATOMA/NEUROSURGERY HAS SIGNED OFF HIS CARE ALERT, COOPERATIVE, COMFORTABLE WITH NO HEADACHE OR BLURRY VISION OR NEUROLOGIC DEFICIT HEENT PERRLA, SUPPLE, OCCLUSION NORMAL CHEST CLEAR AND SYMMETRIC COR REGULAR RHYTHM ABDOMEN SOFT NONTENDER EXTREMITIES FULL RANGE OF MOTION FULL PULSES NEUROLOGIC IS PHYSIOLOGIC AND SYMMETRIC EXAM Plan: HOME TODAY 10/25/17 08:46 Objective: Vital Signs Temp Pulse Resp BP Pulse Ox 36.6 C 86 14 120/78 95 10/25/17 07:52 10/25/17 07:52 10/25/17 07:52 10/25/17 08:29 10/25/17 07:52 10/24/17 10/25/17 10/26/17 05:59 05:59 05:59 Intake Total 2070 240 Balance 2070 240 ICD10 Worksheet Patient Problems: Problems Problem Status Onset Alcohol intoxication Acute Fall at home Acute Subarachnoid bleed Acute Subdural hematoma, acute Acute Temporal bone fracture Acute
[2017-10-25] MEDS ORDERED: LISINOPRIL/HCTZ 20/12.5MG 1 EA TAB PO SCH (09:00)
--- NOTE | 2017-10-25 11:33 | GDS ---
[f rep st] DISCHARGE SUMMARY DISCHARGE DIAGNOSES: 1. Traumatic fall down the stairs. 2. Alcohol intoxication. 3. Closed head injury. 4. Right frontal subdural hemorrhage with associated subarachnoid hemorrhage. 5. Positive loss of consciousness at the scene. 6. Occipital laceration. OTHER PAST MEDICAL HISTORY: Includes seizures, right parietal craniotomy in October of 2015. PROCEDURES: repair of head laceration with christofer in the ED. CONSULTATIONS: 1. uRbén Estevez and Ronnie Robertson, Neurosurgery. 2. Jarret Viveros, hospitalist. SPECIAL TESTS: Please see reports for head, face and cervical spine CT, as well as chest x-ray. HOSPITAL COURSE: The patient is a 67-year-old male who was drinking at home and had a fall, with positive loss of consciousness. He was brought to the emergency department and admitted to the trauma service. Imaging showed a right frontal SDH and associated SAH. He was found to have right-sided periorbital swelling and ecchymosis. Neurosurgery was consulted, and he was admitted for observation in the ICU. CIWA protocol was initiated. The medicine service was also consulted since he was over the age of 66 with comorbidities. The patient had a cognitive evaluation with Speech Therapy. DISCHARGE INSTRUCTIONS: Patient was discharged in stable condition, with no changes in his neuro exam during his hospital stay to home. He was given instructions to follow up with Dr. Mathis in the trauma service and Dr. Robertson in Neurosurgery. Dr. Robertson will need to decide whether or not to obtain repeat CT scan in 3-4 weeks as suggested by his physician chiropractor assistant. /[id number]/MODL MTDD
--- NOTE | 2017-10-25 11:41 | PDIAF ---
- Diagnosis Diagnosis: sdh Code Status: Full Code - Medication Management Discharge Medications: Medications to Continue on Transfer Lisinopril/Hydrochlorothiazide [Zestoretic 20-12.5 mg Tablet] 1 each PO DAILY PRN 10/24/17 [Last Taken Unknown] buPROPion SR [Wellbutrin 150mg SR (*)] 150 mg PO BID PRN 10/24/17 [Last Taken Unknown] Discharge Medications: Refer to the Discharge Home Medication list for PRN reason. - Orders Services needed: Home Care, Physical Therapy, Speech Language Pathologist Home Care Face to Face: I certify that this patient was under my care and that I had the required [id number] encounter meeting the encounter requirements on the discharge day. My findings support the fact that the patient is homebound as defined in Home Care Face to Face Continued: CMS Chapter 7 Medicare Benefits Manual 30.1.1 , The condition of the patient is such that there exists a normal inability to leave home and consequently, leaving home would require a considerable and taxing effort. Isolation Type: None Diet Recommendation: no restrictions on diet Diet Texture: Regular Texture Diet - Follow Up Care Current Providers and Referrals: Rubén Estevez PAC [Physician Director Veterinary] - (Call to make an appointment for a 1 month follow up with Rubén Estevez) Miles Mathis MD [Medical Doctor] - (Call to make an appointment for staple removal in 10 days.)
--- NOTE | 2017-10-25 12:18 | TRAUMAPN ---
- Problem/Surgery Performed (1) Alcohol intoxication Qualifiers: Complication of substance-induced condition: uncomplicated Qualified Code(s ): F10.920 - Alcohol use, unspecified with intoxication, uncomplicated (2) Subdural hematoma, acute Assessment/Plan: NO NEED FOR NS INTERVENTION/ NEURO EXAM STABLE Assessment/Plan: Assessment: 67-YEAR-OLD MALE WHO FELL DOWN THE STAIRS SUSTAINING A VERY SMALL SUBDURAL HEMATOMA/NEUROSURGERY HAS SIGNED OFF HIS CARE ALERT, COOPERATIVE, COMFORTABLE WITH NO HEADACHE OR BLURRY VISION OR NEUROLOGIC DEFICIT HEENT PERRLA, SUPPLE, OCCLUSION NORMAL CHEST CLEAR AND SYMMETRIC COR REGULAR RHYTHM ABDOMEN SOFT NONTENDER EXTREMITIES FULL RANGE OF MOTION FULL PULSES NEUROLOGIC IS PHYSIOLOGIC AND SYMMETRIC EXAM Plan: HOME TODAY 10/25/17 08:46 Subjective: NO SIGNS OF WITHDRAWAL Objective: Vital Signs Temp Pulse Resp BP Pulse Ox 36.6 C 86 14 120/78 95 10/25/17 07:52 10/25/17 07:52 10/25/17 07:52 10/25/17 08:29 10/25/17 07:52 10/24/17 10/25/17 10/26/17 05:59 05:59 05:59 Intake Total 2069 240 Balance 2069 240
--- NOTE | 2017-10-25 15:09 | HOSPPROG ---
Hospitalist Progress Note Assessment/Plan: # SDH - neurologic examination has remained stable overnight no seizures- oxygen saturations 94% on room air - safe for disposition and outpatient neurosurgical follow-up - home speech therapy and physical therapy # hypertension- blood pressure is adequately controlled Telemetry(personally reviewed and interpreted) sinus rhythm - continue home antihypertensives at disposition # alcohol abuse- blood alcohol 365 at presentation- certainly complicating patient's medical stability the outpatient setting - strongly encouraging alcohol cessation at disposition - provided resources to see family to the support abstinence # depression-continue on Wellbutrin at disposition # disposition-patient is stable for discharge today will have outpatient PT speech therapy and neurosurgical follow-up I have discussed the case with the RN-we will not provide long-acting benzodiazepines at disposition as unsafe when combined with active alcohol consumption Subjective: no events overnight Objective: Vital Signs Temp Pulse Resp BP Pulse Ox 36.6 C 86 14 120/78 95 10/25/17 07:52 10/25/17 07:52 10/25/17 07:52 10/25/17 08:29 10/25/17 07:52 10/24/17 10/25/17 10/26/17 05:59 05:59 05:59 Intake Total 2069 240 Balance 2069 240 - Physical Exam Constitutional: no apparent distress Eyes: anicteric sclera Ears, Nose, Mouth, Throat: moist mucous membranes Cardiovascular: regular rate and rhythym Respiratory: no respiratory distress Gastrointestinal: normoactive bowel sounds Genitourinary: no bladder fullness Skin: warm Musculoskeletal: No asymmetric calves Neurologic: AAOx3 Psychiatric: No agitated Lymph, Heme, Immunologic: no cervical LAD ICD10 Worksheet Patient Problems: Problems Problem Status Onset Alcohol intoxication Acute Fall at home Acute Subarachnoid bleed Acute Subdural hematoma, acute Acute Temporal bone fracture Acute
--- NOTE | 2017-10-25 17:05 | ASDISCHSUM ---
Discharge Information Plan Status:Home with Home Health Medically Cleared to Leave:10/24/2017 Discharge Date:10/25/2017 01:00 PM CM D/C Disposition:Home Health Service ADT D/C Disposition:Home, Routine, Self-Care Projected Discharge Date:10/25/2017 12:00 PM Transportation at D/C:Family Discharge Delay Reason: Follow-Up Date:10/25/2017 12:00 PM Discharge Slot: Final Diagnosis:Fall: ETOH, SDH, HTN Placement Information Referral Type:*Home Health Care Services Referral ID:[id number] Provider [facility] [address] [facility] [address] Address 2: City:[place] Selection Factors: State:[place] Patient Contact Information Contact Name:SUMAN Relationship: Address:[address] City:[place] Alternate Phone: State/Zip Code:[place] [address] Email: Financial Information Financial Class:Medicare Primary Plan Desc:MEDICARE INPATIENT Primary Plan Number:[id number] Secondary Plan Desc:RYAN Secondary Plan Number:[id number] Assessment Information [facility] CM Progress Note CM Note CM Note Notes: 67 yr old male admitted after a ETOH/fall down the stairs and SDH, SAH. He has a hx of R parietal crani in '16 and SZ. Patient is . Therapies to eval for discharge needs. CM to follow. Date Signed: 10/24/2017 09:20 AM Electronically Signed By:Sisi Corrales LCSW Case Management Discharge Plan Note Case Management Discharge Discharge Order Complete? Answers: Yes Patient to Obtain Answers: via Family Medications Transportation Arranged Answers: Family/Friends Transport will Pick (Date 10/25/2017 12:00 PM & Time) Faxed Final Orders Answers: Yes Notes: [facility] Agency/Facility Transfer Answers: Yes Report Printed & Faxed to Receiving Agency Family Notified Answers: Yes Notes: to transport Discharge Comments Notes: Met with and patient. Set up hc services with [facility]. Gave them SR Res Book for private pay assist and other res for people w/head injuries. Patient is a high functioning person and many providers feel that he is "normal". Talked about how ETOH was hindering his thought processes and placing him in danger as with this admission. and he understand his need for 24hr supervision. Date Signed: 10/25/2017 04:58 PM Electronically Signed By:Sisi Corrales LCSW Intervention Information Intervention Type:*Occurence 72 Date of Service:10/25/2017 01:46 PM Patient Type:Inpatient Staff Member:MIGUEL ANGEL Meredith Susan Hours: Discipline: Severity: Comment:
[2017-10-26] MEDS ORDERED: THIAMINE HCL 100 MG TAB PO SCH (23:30)
== END 2017-10-25 13:00 | disposition home or self-care (01) | DRG 87 ==
LOC: EDUNIT# → INTOOBSV 23:01 → F2N 10-24 00:10 → OBSVTOIN 10-24 11:49
PROVIDERS: ADMIT Surgery; ATTEND Surgery
PROC: 0HQ0XZZ Repair Scalp Skin, External Approach (ICD-10-PCS; principal; 2017-10-24)
DX: S06.5X1A Traumatic subdural hemorrhage with loss of consciousness of 30 minutes or less, initial encounter (principal); S06.6X1A Traumatic subarachnoid hemorrhage with loss of consciousness of 30 minutes or less, initial encounter; S01.01XA Laceration without foreign body of scalp, initial encounter; W10.9XXA Fall (on) (from) unspecified stairs and steps, initial encounter; Y92.018 Other place in single-family (private) house as the place of occurrence of the external cause; R40.2413 Glasgow coma scale score 13-15, at hospital admission; F10.129 Alcohol abuse with intoxication, unspecified; I10 Essential (primary) hypertension; R56.9 Unspecified convulsions; Z87.891 Personal history of nicotine dependence; Z87.820 Personal history of traumatic brain injury
CPT/HCPCS: 92523-GN; 97116-GP; 97162-GP; 97166-GO; 97535-GO; G0378; G0480; G8978-GP-CJ; G8979-GP-CI; G8987-GO-CK; G8988-GO-CI; G9165-GN-CJ; G9166-GN-CJ; J1953; J2250; J3411

== ENCOUNTER 2017-10-27 17:03 | Emergency (ER) | payer OTHER ==
--- NOTE | 2017-10-27 17:12 | EDPHY ---
H & P Stated Complaint: fall hit head last sat/seen in ed increasing headache and nausea Time Seen by Provider: 10/27/17 17:11 HPI/ROS: CHIEF COMPLAINT: Headache and nausea HISTORY OF PRESENT ILLNESS: The patient presents to the ED with complaints of headache and nausea. The patient was hospitalized last week after he sustained a mechanical fall from alcohol intoxication resulting in a small right frontal subdural hematoma and intracranial hemorrhage. The patient was observed in the hospital overnight without any additional decline and discharged home uneventfully. Patient denies any history of new fall or trauma. He had been scheduled to follow up with Neurosurgery as an outpatient for a repeat head CT scan in 3-4 weeks. The patient does have a history of some cognitive dysfunction following his fall. The patient does complain of some chronic neck spasm secondary to his immobility. The patient has just been taking Tylenol for pain. REVIEW OF SYSTEMS: A comprehensive 10 point review of systems is otherwise negative aside from elements mentioned in the history of present illness. 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 PSH: brain surgery11/08/15 - Social History Smoking Status: Former smoker - Physical Exam Exam: General Appearance: Alert, no distress Head: Ecchymoses noted around right eye, mild tenderness to palpation over the right forehead, no significant hematoma Eyes: Pupils equal, round, reactive ENT, Mouth: No hemotympanum, no oral trauma Neck: Nontender, trachea midline Respiratory: No chest wall tender, subcutaneous air, lungs clear bilaterally Cardiovascular: Regular rate and rhythm Abdomen: Abdomen is soft and nontender, pelvis stable Skin: No lacerations, No abrasion Back: No midline T/L/S pain Extremities: Nontender, full range of motion Neurological: A&Ox3, normal motor function, normal sensory exam Constitutional: Initial Vital Signs Temperature (C) 36.7 C 10/27/17 17:07 Heart Rate 99 10/27/17 17:07 Respiratory Rate 18 10/27/17 17:07 Blood Pressure 137/97 H 10/27/17 17:07 O2 Sat (%) 97 10/27/17 17:07 O2 Delivery Mode Room Air Allergies/Adverse Reactions: No Known Allergies Allergy (Verified 10/27/17 17:07) Home Medications: Medication Instructions Recorded Lisinopril/Hydrochlorothiazide 1 each PO DAILY PRN 10/24/17 [Zestoretic 20-12.5 mg Tablet] buPROPion SR [Wellbutrin 150mg SR 150 mg PO BID PRN 10/24/17 (*)] Acetaminophen [Tylenol 325mg (*)] 325 - 650 mg PO Q4HRS PRN tab 10/25/17 Folic Acid [Folic Acid 1 MG (*)] 1 mg PO DAILY tab 10/25/17 Multivitamins [Multivitamin (*)] 1 each PO DAILY tab 10/25/17 Thiamine HCl [Vitamin B-1] 100 mg PO DAILY tab 10/25/17 Gabapentin [Neurontin 300 MG (*)] 300 mg PO BID PRN #30 cap 10/27/17 Medical Decision Making ED Course/Re-evaluation: ED course: Given the patient's complaints of an acutely worsening headache he was taken for noncontrast head CT scan which demonstrates no material progression and some resolution of his prior subdural hematoma. The patient is noted to be neurologically intact. The patient will not be given narcotics given his history of alcoholism. He will be given a prescription for gabapentin. The patient is noted to be neurologically intact in the ED. The patient is advised to follow up with Neurosurgery as scheduled. Differential Diagnosis: Differential diagnosis considered includes worsening subdural hematoma, skull fracture, worsening subarachnoid hemorrhage, tension headache Departure - Departure Disposition: Home, Routine, Self-Care Clinical Impression: Subarachnoid bleed Acute headache Qualifiers: Headache type: post-traumatic Intractability: not intractable Qualified Code(s) : G44.319 - Acute post-traumatic headache, not intractable Condition: Good Instructions: Acute Headache (ED) Additional Instructions: 1. Tylenol as needed for pain. 2. Gabapentin as needed for pain. 3. Your CT scan demonstrates improvement of your bleed Referrals: Jeferson Robertson MD [Medical Doctor] - As per Instructions
[2017-10-27] MEDS ORDERED: GABAPENTIN 300 MG CAP ONE (18:25)
[2017-10-27] MEDS ORDERED: GABAPENTIN 300 MG CAP PO ONE (18:29)
[2017-10-27 18:39] VITALS: BP 131/82; PULSE 78; RESP 16; TEMP 97.9; O2SAT 96
== END 2017-10-27 18:39 | disposition home or self-care (01) ==
DX: S06.6X0D Traumatic subarachnoid hemorrhage without loss of consciousness, subsequent encounter (principal); G44.319 Acute post-traumatic headache, not intractable; I10 Essential (primary) hypertension; Z87.891 Personal history of nicotine dependence; W18.39XD Other fall on same level, subsequent encounter

== ENCOUNTER 2017-12-16 14:42 | Emergency (ER) | payer OTHER ==
[2017-12-16 15:08] LABS: PLATELET COUNT 179 10^3/uL (150-400)
[2017-12-16] MEDS ORDERED: LORazepam 2 MG/ML INJ IVP ONE ×3 (16:11→17:09)
--- NOTE | 2017-12-16 16:14 | EDPHY ---
H & P Stated Complaint: seizure Time Seen by Provider: 12/16/17 16:04 HPI/ROS: CHIEF COMPLAINT: Alcohol withdrawal seizure HISTORY OF PRESENT ILLNESS: Patient is a 67-year-old man who had an alcohol withdrawal seizure. He does not remember the event or having got here. He has been here for an hour and half is states that his butt is sore and he wants to go home. He has not yet received any medications. He is trying to stop drinking and has not had alcohol in 24 hr. He denies other co ingestants. He denies any medical history other than hypertension. REVIEW OF SYSTEMS: Constitutional: denies: chills, fever, recent illness, recent injury EENTM: denies: blurred vision, double vision, nose congestion Respiratory: denies: cough, shortness of breath Cardiac: denies: chest pain, irregular heart rate, lightheadedness, palpitations Gastrointestinal/Abdominal: denies: abdominal pain, diarrhea, nausea, vomiting, blood streaked stools Genitourinary: denies: dysuria, frequency, hematuria, pain Musculoskeletal: denies: joint pain, muscle pain Skin: denies: lesions, rash, jaundice, bruising Neurological: See HPI denies: headache, numbness, paresthesia, tingling, dizziness, weakness Hematologic/Lymphatic: denies: blood clots, easy bleeding, easy bruising Immunologic/allergic: denies: HIV/AIDS, transplant EXAM: GENERAL: Disheveled HEAD: Atraumatic, normocephalic. EYES: Pupils equal round and reactive to light, extraocular movements intact, sclera anicteric, conjunctiva are normal. ENT: TMs normal, nares patent, oropharynx clear without exudates. Moist mucous membranes. NECK: Normal range of motion, supple without lymphadenopathy or JVD. LUNGS: Breath sounds clear to auscultation bilaterally and equal. No wheezes rales or rhonchi. HEART: Regular rate and rhythm without murmurs, rubs or gallops. ABDOMEN: Soft, nontender, normoactive bowel sounds. No guarding, no rebound. No masses appreciated. BACK: No CVA tenderness, no spinal tenderness, step-offs or deformities EXTREMITIES: Normal range of motion, no pitting or edema. No clubbing or cyanosis. NEUROLOGICAL: Tremulous, Cranial nerves II through XII grossly intact. Normal speech. 5/5 strength, normal movement in all extremities, normal sensation PSYCH: Normal mood, normal affect. SKIN: Warm, dry, normal turgor, no visible rashes or lesions. Source: Patient Exam Limitations: No limitations - Personal History Current Tetanus/Diphtheria Vaccine: Yes Current Tetanus Diphtheria and Acellular Pertussis (TDAP): Yes - Medical/Surgical History Hx Asthma: No Hx Chronic Respiratory Disease: No Hx Diabetes: No Hx Cardiac Disease: No Hx Renal Disease: No Hx Cirrhosis: No Hx Alcoholism: Yes Hx HIV/AIDS: No Hx Splenectomy or Spleen Trauma: No Other PMH: PMH: HTN, alcohol abuse, [employer] hemorrhage. PSH: brain surgery11/08/15 - Family History Significant Family History: No pertinent family hx - Social History Smoking Status: Former smoker Alcohol Use: Heavy Drug Use: None Constitutional: Initial Vital Signs Temperature (C) 36.9 C 12/16/17 14:51 Heart Rate 125 H 12/16/17 14:51 Respiratory Rate 18 12/16/17 14:51 Blood Pressure 153/95 H 12/16/17 14:51 O2 Sat (%) 93 12/16/17 14:51 O2 Delivery Mode Room Air O2 (L/minute) 2 Allergies/Adverse Reactions: No Known Allergies Allergy (Verified 10/27/17 17:07) Home Medications: Medication Instructions Recorded Lisinopril/Hydrochlorothiazide 1 each PO DAILY PRN 10/24/17 [Zestoretic 20-12.5 mg Tablet] buPROPion SR [Wellbutrin 150mg SR 150 mg PO BID PRN 10/24/17 (*)] Acetaminophen [Tylenol 325mg (*)] 325 - 650 mg PO Q4HRS PRN tab 10/25/17 Folic Acid [Folic Acid 1 MG (*)] 1 mg PO DAILY tab 10/25/17 Multivitamins [Multivitamin (*)] 1 each PO DAILY tab 10/25/17 Thiamine HCl [Vitamin B-1] 100 mg PO DAILY tab 10/25/17 Gabapentin [Neurontin 300 MG (*)] 300 mg PO BID PRN #30 cap 10/27/17 Medical Decision Making ED Course/Re-evaluation: The patient agrees to go to the [facility]. I will treat him with Ativan and observe. 4:45 p.m. the patient's family is now here. They are very happy that we are going to send him to the [facility]. I will give him some more fluid in Ativan because he is still slightly tachycardic. His tremors improved significantly. Differential Diagnosis: Partial list of the Differential diagnosis considered include but were not limited to; alcohol withdrawal, seizure and although unlikely based on the history and physical exam, I also considered epilepsy, electrolyte abnormality, infection, trauma. I discussed these differential diagnoses and the plan with the patient as well as the usual and expected course. The patient understands that the diagnosis is provisional and that in medicine we are not always correct and that further workup is often warranted. Usual and customary warnings were given. All of the patient's questions were answered. The patient was instructed to return to the emergency department should the symptoms at all worsen or return, otherwise to followup with the physician as we discussed. - Data Points Laboratory Results: Laboratory Results 12/16/17 14:43 12/16/17 14:43 12/16/17 12/16/17 14:43 14:43 WBC 7.45 10^3/uL 10^3/uL (3.80-9.50) RBC 5.09 10^6/uL 10^6/uL (4.40-6.38) Hgb 16.3 g/dL g/dL (13.7-17.5) Hct 48.0 % % (40.0-51.0) MCV 94.3 fL fL (81.5-99.8) MCH 32.0 pg pg (27.9-34.1) MCHC 34.0 g/dL g/dL (32.4-36.7) RDW 15.9 % H % (11.5-15.2) Plt Count 179 10^3/uL 10^3/uL (150-400) MPV 10.7 fL fL (8.7-11.7) Neut % (Auto) 67.0 % % (39.3-74.2) Lymph % (Auto) 22.3 % % (15.0-45.0) Treasure % (Auto) 9.5 % % (4.5-13.0) Eos % (Auto) 0.1 % L % (0.6-7.6) Baso % (Auto) 0.8 % % (0.3-1.7) Nucleat RBC Rel Count 0.0 % % (0.0-0.2) Absolute Neuts (auto) 4.99 10^3/uL 10^3/uL (1.70-6.50) Absolute Lymphs (auto) 1.66 10^3/uL 10^3/uL (1.00-3.00) Absolute Monos (auto) 0.71 10^3/uL 10^3/uL (0.30-0.80) Absolute Eos (auto) 0.01 10^3/uL L 10^3/uL (0.03-0.40) Absolute Basos (auto) 0.06 10^3/uL 10^3/uL (0.02-0.10) Absolute Nucleated RBC 0.00 10^3/uL 10^3/uL (0-0.01) Immature Gran % 0.3 % % (0.0-1.1) Immature Gran # 0.02 10^3/uL 10^3/uL (0.00-0.10) Sodium 142 mEq/L mEq/L (135-145) Potassium 4.3 mEq/L mEq/L (3.5-5.2) Chloride 101 mEq/L mEq/L (97-110) Carbon Dioxide 18 mEq/l L mEq/l (22-31) Anion Gap 23 mEq/L H mEq/L (8-16) BUN 12 mg/dL mg/dL (7-23) Creatinine 0.9 mg/dL mg/dL (0.7-1.3) Estimated GFR > 60 Glucose 150 mg/dL H mg/dL (70-100) Calcium 9.9 mg/dL mg/dL (8.5-10.4) Ethyl Alcohol < 10 mg/dL mg/dL (0-10) Medications Given: Discontinued Medications Chlordiazepoxide (Librium 25 Mg Prepack#6) 1 btl TAKEHOME EDNOW ONE Stop: 12/16/17 17:25 Last Admin: 12/16/17 19:30 Dose: 1 btl Sodium Chloride (Ns) 1,000 mls @ 0 mls/hr IV ONCE ONE PRN Reason: Wide Open Stop: 12/16/17 17:06 Last Admin: 12/16/17 17:12 Dose: 1,000 mls Sodium Chloride (Ns) 1,000 mls @ 0 mls/hr IV EDNOW ONE; Wide Open PRN Reason: Protocol Stop: 12/16/17 17:10 Last Admin: 12/16/17 17:15 Dose: 1,000 mls Lorazepam (Ativan Injection) 2 mg IVP EDNOW ONE Stop: 12/16/17 16:12 Last Admin: 12/16/17 16:22 Dose: 2 mg Lorazepam (Ativan Injection) 1 mg IVP EDNOW ONE Stop: 12/16/17 17:07 Last Admin: 12/16/17 17:12 Dose: 1 mg Lorazepam (Ativan Injection) 1 mg IVP EDNOW ONE Stop: 12/16/17 17:10 Last Admin: 12/16/17 17:15 Dose: 1 mg Departure - Departure Disposition: Law Enforcement/Court/Alf Clinical Impression: Alcohol related seizure Alcohol withdrawal Qualifiers: Complication of substance-induced condition: uncomplicated Qualified Code(s): F10.230 - Alcohol dependence with withdrawal, uncomplicated Condition: Good Instructions: Chlordiazepoxide (By mouth), Alcohol Withdrawal (ED) Additional Instructions: Go directly to the alcohol recovery Center Referrals: NONE *PRIMARY CARE P,. [Primary Care Provider] - As per Instructions
[2017-12-16] MEDS ORDERED: NS 1,000 ML IV ONE ×2 (17:05→17:09)
[2017-12-16] MEDS ORDERED: CHLORDIAZEPOXIDE 25MG PREPK#6 BTL TAKEHOME ONE (17:24)
[2017-12-16 20:09] VITALS: BP 143/74
== END 2017-12-16 20:08 ==
LOC: EDUNIT#
DX: G40.509 Epileptic seizures related to external causes, not intractable, without status epilepticus (principal); F10.230 Alcohol dependence with withdrawal, uncomplicated; I10 Essential (primary) hypertension; E86.9 Volume depletion, unspecified; Z87.891 Personal history of nicotine dependence
CPT/HCPCS: 96361; 96374; 96376; 99284; J2060; G0480

== ENCOUNTER 2019-01-19 10:16 | Inpatient (IN) | payer OTHER | END 2019-01-24 20:44 | disposition left against medical advice (07) | LOC: F3N 14:51 ==